=== PATIENT | female | born 1970 | race Caucasian/White ===

== ENCOUNTER 2016-04-26 05:50 | Day surgery (SDC) | payer OTHER ==
[~2016-04-26] VITALS: Ht 170.2 cm; Wt 78.2 kg
[~2016-04-26 05:50] MED LIST: FentaNYL CITRATE-PF 100 MCG/2 ML VIAL IVP ONE; MIDAZOLAM HCL 2 MG/2 ML VIAL IVP ONE
[2016-04-26] MEDS ORDERED: RINGERS SOLUTION,LACTATED 1,000 ML IV ONE ×3 (06:00→09:15)
[2016-04-26] MEDS ORDERED: CeFAZolin 2 GM/DEXTROSE 50 ML IV ONE ×2 (06:07→07:00)
[2016-04-26] MEDS ORDERED: MONT10TA21 PO (06:50)
[2016-04-26] MEDS ORDERED: VENL25TA47 PO (06:50)
[2016-04-26] MEDS ORDERED: FLUT16H NASAL (06:50)
[2016-04-26] MEDS ORDERED: DEXAMETHASONE SOD PHOS 4 MG/ML VIAL ONE ×2 (06:51→09:21)
[2016-04-26] MEDS ORDERED: GUM MASTIC/STORAX/MSAL/ALCOHOL LIQUID 0.67 ML VIAL TP ONE (06:52)
[2016-04-26] MEDS ORDERED: LIDOCAINE HCL/PF 2% 5 ML VIAL ONE (06:52)
[2016-04-26] MEDS ORDERED: BUPIVACAINE HCL/PF 0.5% 30 ML VIAL ONE (06:53)
[2016-04-26] MEDS ORDERED: FentaNYL CITRATE-PF 100 MCG/2 ML VIAL IVP PRN (07:30)
[2016-04-26] MEDS ORDERED: HYDROmorphone 2 MG/ML SYRINGE IVP PRN (07:30)
[2016-04-26] MEDS ORDERED: MEPERIDINE-PF 25 MG/ML SYRINGE IVP PRN (07:30)
[2016-04-26] MEDS ORDERED: OXYGEN THERAPY IH SCH (08:00)
[2016-04-26] MEDS ORDERED: EPHEDrine SULFATE 50 MG/ML VIAL IM ONE (22:29)
[2016-04-26] MEDS ORDERED: METOCLOPRAMIDE HCL 5 MG/ML 2 ML VIAL IVP ONE (22:29)
[2016-04-26] MEDS ORDERED: LIDOCAINE HCL/PF 2% 5 ML VIAL IM ONE (22:29)
[2016-04-26] MEDS ORDERED: PROPOFOL 1% 20 ML VIAL IVP ONE (22:29)
[2016-04-26] MEDS ORDERED: ALBUTEROL SULFATE HFA 90 MCG/PUFF 8 GM INHALER IH ONE (22:29)
[2016-04-26] MEDS ORDERED: ONDANSETRON HCL 4 MG/2 ML VIAL IVP ONE (22:29)
[2016-04-26] MEDS ORDERED: DEXAMETHASONE SOD PHOS 4 MG/ML VIAL IVP ONE (22:29)
== END 2016-04-26 12:05 | disposition home or self-care (01) ==
LOC: SURGERY 05:50
PROVIDERS: ATTEND Podiatrist Foot & Ankle Surgery
DX: M20.5X2 Other deformities of toe(s) (acquired), left foot (principal); M19.90 Unspecified osteoarthritis, unspecified site; J45.909 Unspecified asthma, uncomplicated; F32.9 Major depressive disorder, single episode, unspecified; Z72.89 Other problems related to lifestyle; Z98.890 Other specified postprocedural states; Z87.01 Personal history of pneumonia (recurrent)
CPT/HCPCS: 28291; 73630; 88300; C1713 ×2; C1769; J0690 ×2; J1100; J2250; J2405; J2704; J2765; J3010; J3490 ×3; J7120; J3535